=== PATIENT | female | born 1985 | race Caucasian/White ===

== ENCOUNTER 2020-05-17 19:50 | Emergency (ER) | payer OTHER, MEDICAID ==
[~2020-05-17] VITALS: Ht 165.1 cm; Wt 67.6 kg
[2020-05-17 20:02] VITALS: Ht 165.1 cm; Wt 67.6 kg
[2020-05-17 21:08] VITALS: BP 132/87
== END 2020-05-17 21:08 | disposition home or self-care (01) ==
LOC: ED 19:50
DX: S16.1XXA Strain of muscle, fascia and tendon at neck level, initial encounter (principal); S40.012A Contusion of left shoulder, initial encounter; V49.9XXA Car occupant (driver) (passenger) injured in unspecified traffic accident, initial encounter; Y93.89 Activity, other specified; Y92.89 Other specified places as the place of occurrence of the external cause; Y99.8 Other external cause status